=== PATIENT | female | born 1995 | race Caucasian/White ===

== ENCOUNTER 2017-03-08 22:16 | Emergency (ER) | payer OTHER ==
[~2017-03-08] VITALS: Ht 167.6 cm; Wt 72.7 kg
[2017-03-08] MEDS ORDERED: ATARAX 25MG25 MG/TAB PO (22:28)
[2017-03-08] MEDS ORDERED: CELEXA 20MG20 MG/TAB PO (22:29)
[2017-03-08 22:53] LABS: HEMATOCRIT 41.2 % (35.0-45.0); HEMOGLOBIN 13.3 g/dl (12.0-15.0); MEAN CELL VOLUME 86 fl (80.0-95.0); MEAN CORPUSCULAR HEMOGLOBIN 28 pg (26.0-32.0); MEAN CORPUSCULAR HGB CONC 32 g/dl (33.0-37.0); PLATELET COUNT 414 K/mm3 (130-400); RED BLOOD COUNT 4.79 M/mm3 (4.10-5.30); REDCELL DISTRIBUTION WIDTH-CV 13.3 % (11.5-14.5); WHITE BLOOD COUNT 17.6 K/mm3 (4.8-10.8)
[2017-03-08 23:03] LABS: ADD PATHOLOGY DIFF REVIEW NO
[2017-03-08 23:11] LABS: ACETAMINOPHEN < 10 ug/mL (10-30); ALANINE AMINOTRANSFERASE 24 U/L (9-52); ALBUMIN 4.4 gm/dL (3.5-5.0); ALKALINE PHOSPHATASE 58 U/L (50-136); ANION GAP 10 mmol/L (7-16); BILIRUBIN,TOTAL 0.5 mg/dL (0.0-1.0); BLOOD UREA NITROGEN 13 mg/dL (7-17); CALCIUM 9.3 mg/dL (8.4-10.2); CARBON DIOXIDE 23 mmol/L (22-30); CHLORIDE 103 mmol/L (98-107); GLUCOSE 169 mg/dL (74-106); POTASSIUM 3.8 mmol/L (3.4-5.0); SODIUM 137 mmol/L (137-145); TOTAL PROTEIN 7.6 gm/dL (6.4-8.2)
[2017-03-08 23:12] LABS: SALICYLATE < 1.0 mg/dL
[2017-03-09 00:12] LABS: BAND 25 % (0-10); EOSINOPHIL 1 % (0-4); NEUTROPHILS 36 % (42.0-75.2); TOTAL CELLS COUNTED 100
[2017-03-09 00:39] VITALS: BP 107/63; PULSE 94
== END 2017-03-09 00:41 | disposition home or self-care (01) ==
LOC: COL.ER 22:16 → EDBD 22:17 → COL.ER 03-09 00:41
PROVIDERS: Emergency Medicine
DX: T65.91XA Toxic effect of unspecified substance, accidental (unintentional), initial encounter (principal); Z32.02 Encounter for pregnancy test, result negative
CPT/HCPCS: J2310; J2405; J7030

== ENCOUNTER 2020-07-01 23:50 | Emergency (ER) | payer BC ==
[~2020-07-01] VITALS: Ht 162.6 cm; Wt 52.3 kg
[~2020-07-01 23:50] MED LIST: ATARAX 25MG25 MG/TAB PO; CELEXA 20MG20 MG/TAB PO; NORCO 325 MG-51 TAB PO; ZOFRAN 4MG T4 MG/TAB PO
[2020-07-02 12:40] LABS: COLLECTION METHOD RANDOM VOIDED
[2020-07-02 13:06] LABS: ALANINE AMINOTRANSFERASE 14 U/L (4-34); ALBUMIN 5.1 gm/dL (3.5-5.0); ALKALINE PHOSPHATASE 61 U/L (50-136); ANION GAP 16 mmol/L (7-16); AST,SGOT 25 U/L (15-37); BILIRUBIN,TOTAL 0.6 mg/dL (0.0-1.0); BLOOD UREA NITROGEN 19 mg/dL (7-17); CALCIUM 10.2 mg/dL (8.4-10.2); CARBON DIOXIDE 20 mmol/L (22-30); CHLORIDE 104 mmol/L (98-107); GLUCOSE 155 mg/dL (74-106); POTASSIUM 3.5 mmol/L (3.4-5.0); SODIUM 141 mmol/L (137-145)
[2020-07-02 13:08] LABS: ACETAMINOPHEN < 10 ug/mL (10-30); ALCOHOL(ethanol),MEDICAL < 10 mg/dL; SALICYLATE < 1.0 mg/dL
[2020-07-02 14:29] LABS: BASO # 0.1 (0.0-0.2); BASO % 0.5 % (0.0-2.0); EOS # 0.2 (0.0-0.7); EOS % 1.7 % (0-4.0); GRAN # 5.3 (1.4-6.5); GRAN % 53.8 % (42.2-75.2); HEMATOCRIT 42.4 % (37.0-47.0); HEMOGLOBIN 14.3 g/dl (12.5-16.0); LYMPH # 3.5 (1.2-3.4); MEAN CELL VOLUME 85 fl (80.0-100.0); MEAN CORPUSCULAR HEMOGLOBIN 29 pg (27.0-31.0); MEAN CORPUSCULAR HGB CONC 34 g/dl (33.0-37.0); MEAN PLATELET VOLUME 9.7 fl (7.4-10.4); MONO # 0.9 (0.1-0.6); MONO % 8.7 % (1.7-9.3); PLATELET COUNT 368 K/mm3 (130-400); RED BLOOD COUNT 5.02 M/mm3 (4.10-5.30); REDCELL DISTRIBUTION WIDTH-CV 15.4 % (11.5-14.5)
[2020-07-02 16:29] VITALS: BP 136/102; PULSE 106; TEMP 97.9
[2020-07-02 18:21] LABS: TRICYCLIC ANTIDEPRESS URINE NEGATIVE
[2020-07-02 19:04] LABS: MUCOUS Present /lpf; PH 5 (5-8); SQUAMOUS EPITHELIAL 0-2 /hpf; URINE APPEARANCE Hazy; URINE BACTERIA None Seen /hpf; URINE BILIRUBIN Negative (NEGATIVE); URINE BLOOD Negative (NEGATIVE); URINE COLOR Yellow; URINE GLUCOSE Negative (NEGATIVE); URINE KETONE Trace (NEGATIVE); URINE LEUKOCYTE ESTERASE Negative (NEGATIVE); URINE NITRATE Negative (NEGATIVE); URINE PROTEIN(semi-quant) 1+ (NEGATIVE); URINE RBC 0-2 /hpf; URINE UROBILINOGEN Negative (NEGATIVE); URINE WBC 0-2 /hpf
== END 2020-07-02 16:29 ==
LOC: COL.ER 23:50
PROVIDERS: Emergency Medicine
DX: R44.1 Visual hallucinations (principal); R45.1 Restlessness and agitation; Z20.822 Contact with and (suspected) exposure to COVID-19
CPT/HCPCS: J2060; J7030

== ENCOUNTER 2021-06-14 07:52 | Emergency (ER) | payer BC ==
[~2021-06-14] VITALS: Ht 162.6 cm; Wt 60.0 kg
[2021-06-14 08:00] VITALS: TEMP 98
[2021-06-14 08:09] LABS: COLLECTION METHOD CLEAN CATCH
[2021-06-14 08:20] LABS: PH 8 (5-8); URINE APPEARANCE Clear (CLEAR/HAZY); URINE COLOR Yellow (YELLOW); URINE GLUCOSE Negative (NEGATIVE); URINE PROTEIN(semi-quant) 1+ (NEGATIVE)
[2021-06-14 08:21] LABS: URINE BILIRUBIN Negative (NEGATIVE); URINE BLOOD Negative (NEGATIVE); URINE KETONE 1+ (NEGATIVE); URINE LEUKOCYTE ESTERASE Negative (NEGATIVE); URINE NITRATE Negative (NEGATIVE); URINE UROBILINOGEN Negative (NEGATIVE)
[2021-06-14 08:23] LABS: MUCOUS Present (NOT PRESENT); SQUAMOUS EPITHELIAL 20-50 /hpf (0-10); URINE BACTERIA None Seen /hpf (NONE SEEN)
[2021-06-14 09:18] LABS: HEMOGLOBIN 14.4 g/dl (12.5-16.0); MEAN CELL VOLUME 80 fl (80.0-100.0); MEAN CORPUSCULAR HEMOGLOBIN 28 pg (27-31); MEAN CORPUSCULAR HGB CONC 34 g/dl (33.0-37.0); MEAN PLATELET VOLUME 10.5 fl (7.4-10.4); PLATELET COUNT 417 K/mm3 (130-400); RED BLOOD COUNT 5.23 M/mm3 (4.10-5.30); REDCELL DISTRIBUTION WIDTH-CV 13.3 % (11.5-14.5)
[2021-06-14 09:36] LABS: ALBUMIN 4.2 gm/dL (3.5-5.0); BILIRUBIN,TOTAL 0.4 mg/dL (0.2-1.2); CALCIUM 10.1 mg/dL (8.4-10.2); CREATININE, serum 0.8 mg/dL (0.57-1.11); POTASSIUM 3.8 mmol/L (3.5-4.5); TOTAL PROTEIN 8.8 gm/dL (6.2-8.1)
[2021-06-14 10:21] LABS: BAND 13 % (0-10); NEUTROPHILS 44 % (42.0-75.2)
[2021-06-14 10:22] LABS: LYMPHOCYTE 40 % (20.0-51.0); OVALOCYTES 1+; PLATELET ESTIMATE NORMAL (NORMAL)
[2021-06-14] MEDS ORDERED: PHENERGAN 25 TA25 MG PO (10:47)
[2021-06-14 11:07] VITALS: BP 129/83; PULSE 79
== END 2021-06-14 11:07 | disposition home or self-care (01) ==
LOC: COL.ER 07:52
PROVIDERS: Family Medicine
DX: R11.2 Nausea with vomiting, unspecified (principal); E86.0 Dehydration; F17.290 Nicotine dependence, other tobacco product, uncomplicated; Z32.02 Encounter for pregnancy test, result negative
CPT/HCPCS: J1790; J1885; J2405; J7120